=== PATIENT | female | born 1955 | race Caucasian/White ===

== ENCOUNTER → 2016-07-19 | Outpatient (CLI) | payer OTHER | LOC: FIMAGING 10:24 | PROVIDERS: ATTEND Otolaryngology | DX: J32.0 Chronic maxillary sinusitis (principal); J34.2 Deviated nasal septum ==

== ENCOUNTER 2016-08-22 07:14 | Day surgery (SDC) | payer OTHER ==
[2016-08-22] MEDS ORDERED: LR 1,000 ML IV ONE (07:45)
[2016-08-22] MEDS ORDERED: LIDOCAINE 1% 2 ML INJ ID PRN (07:45)
[2016-08-22] MEDS ORDERED: METHYLENE BLUE 0.5% 50 MG/10 ML AMP ONE (07:55)
[2016-08-22] MEDS ORDERED: EPINEPHrine 30 MG/30 ML MDV ONE (07:55)
[2016-08-22] MEDS ORDERED: LIDO/EPI 1% **Not for Epidural 20 ML MDV ONE (07:55)
[2016-08-22] MEDS ORDERED: LIDOCAINE 1% 2 ML INJ ONE (07:56)
[2016-08-22] MEDS ORDERED: MIDAZOLAM 2 MG/2 ML VIAL IVP ONE (08:14)
[2016-08-22] MEDS ORDERED: SCOPOLAMINE HYDROBROMIDE 1.5 MG PATCH TD SCH (08:15)
[2016-08-22] MEDS ORDERED: ceFAZolin 2 GM/DEXTROSE 100 ML IV ONE (08:36)
[2016-08-22] MEDS ORDERED: DEXAMETHASONE 10 MG/ML VIAL IVP ONE (08:36)
[2016-08-22] MEDS ORDERED: ROCURONIUM 50 MG/5 ML VIAL ONE (08:37)
[2016-08-22] MEDS ORDERED: DEXAMETHASONE 4 MG/ML VIAL ONE ×3 (08:37)
[2016-08-22] MEDS ORDERED: LIDOCAINE 2% 5 ML SDV ONE (08:38)
[2016-08-22] MEDS ORDERED: ONDANSETRON 4 MG/2 ML VIAL ONE (08:38)
--- NOTE | 2016-08-22 08:38 | PDHPUP ---
History & Physical Update H&P update statement: This history and physical update is based on an assessment of the patient which was completed after admission or registration (within 24 hours), but prior to the surgery/procedure. H&P update: H&P reviewed & patient examined, no change in patient's condition since H&P completed (plan for B FESS, possible septoplasty)
[2016-08-22] MEDS ORDERED: fentaNYL 100 MCG/2 ML INJ ONE ×2 (08:40→13:14)
[2016-08-22] MEDS ORDERED: PROPOFOL 200 MG/20 ML VIAL ONE (08:40)
--- NOTE | 2016-08-22 09:51 | PDANEPAE ---
ANE History of Present Illness 61 year old with asthma well controlled on advair, uses albuterol as a rescue, and stable hypothyroidism. She took her augmentin this AM, as well as advair and synthroid. She has a history of motion sickness so discussed triple antiemetic therapy. No difficulties with anesthesia in the past. ANE Past Medical History - Cardiovascular History Hx Hypertension: No Hx Arrhythmias: No Hx Chest Pain: No Hx Coronary Artery / Peripheral Vascular Disease: No Hx CHF / Valvular Disease: No Hx Palpitations: No - Pulmonary History Hx COPD: No Hx Asthma/Reactive Airway Disease: Yes Hx Recent Upper Respiratory Infection: No Hx Oxygen in Use at Home: No - Neurologic History Hx Cerebrovascular Accident: No Hx Seizures: No Hx Dementia: No - Endocrine History Hx Diabetes: No Hypothyroid: Yes - Renal History Hx Renal Disorders: No - Liver History Hx Hepatic Disorders: No - Neurological & Psychiatric Hx Hx Neurological and Psychiatric Disorders: Yes - Cancer History Hx Cancer: No - Congenital Disorder History Hx Congenital Disorders: No - GI History Hx Gastrointestinal Disorders: No - Chronic Pain History Chronic Pain: No ANE Review of Systems - Exercise capacity METS (RN): 4 METS ANE Patient History - Allergies Allergies/Adverse Reactions: Sulfa (Sulfonamide Antibiotics) Allergy (Verified 08/05/16 16:56) - Home Medications Home Medications: ALBUTEROL SULFATE 1.25 MG/3 ML 2 puffs DAILY PRN 08/05/16 [Last Taken Unknown] Advair 100/50 (*) 1 puffs DAILY 08/05/16 [Last Taken 08/21/16] Calcium 500-Vit D3 200 Tablet 1 tab DAILY 08/05/16 [Last Taken 08/12/16] Fish Oil 1,200 mg Softgel 1 cap DAILY 08/05/16 [Last Taken 08/12/16] Levothyroxine 1 tab DAILY 08/05/16 [Last Taken 08/21/16 06:25] Multivitamin (*) 1 tab DAILY 08/05/16 [Last Taken 08/12/16] Qnasl 2 spray EACHNARE DAILY 08/05/16 [Last Taken 08/21/16 18:25] Vitamin B12 (*) 0.5 tab DAILY 08/05/16 [Last Taken 08/12/16] Ativan 08/22/16 [Last Taken 08/21/16 18:30] Augmentin 875 MG TAB (*) 08/22/16 [Last Taken 08/22/16 08:25] Prednisone 20 08/22/16 [Last Taken 08/21/16] - NPO status NPO Since - Liquids (Date): 08/21/16 NPO Since - Liquids (Time): 22:00 NPO Since - Solids (Date): 08/21/16 NPO Since - Solids (Time): 20:00 - Smoking Hx Smoking Status: Former smoker ANE Labs/Vital Signs - Vital Signs Blood Pressure: 121/69 Heart Rate: 56 Respiratory Rate: 16 O2 Sat (%): 16 Height: 170.18 cm Weight: 61.235 kg ANE Physical Exam - Airway Mallampati Score: Class 1 Mouth exam: poor dentition - Pulmonary Pulmonary: no respiratory distress - Cardiovascular Cardiovascular: regular rate and rhythym - ASA Status ASA Status: II (multiple chips on teeth, right front tooth with large crack) ANE Anesthesia Plan Anesthesia Plan: general endotracheal anesthesia Urgent/Emergent Case: Denise christiansen completed preop but documented later for safe timely pt care
[2016-08-22] MEDS ORDERED: fentaNYL 100 MCG/2 ML INJ IVP PRN (10:56)
[2016-08-22] MEDS ORDERED: ONDANSETRON 4 MG/2 ML VIAL IVP PRN ×2 (10:56→12:16)
[2016-08-22] MEDS ORDERED: MEPERIDINE 25 MG/ML SYR IVP PRN (10:56)
[2016-08-22] MEDS ORDERED: OXYCODONE/APAP 5/325 TAB PO PRN ×2 (10:56→12:16)
[2016-08-22] MEDS ORDERED: PROMETHAZINE HCL 25 MG/ML INJ IVP PRN (10:56)
[2016-08-22] MEDS ORDERED: NALOXONE HCL 0.4 MG/ML INJ IVP PRN (10:56)
[2016-08-22] MEDS ORDERED: HYDROmorphONE/DILAUDID 1 MG/ML SYR IVP PRN (10:56)
[2016-08-22] MEDS ORDERED: LR 500 ML IV PRN (10:56)
[2016-08-22] MEDS ORDERED: OXYMETAZOLINE 30 ML NASAL SPRAY EACHNARE PRN (12:16)
--- NOTE | 2016-08-22 12:23 | POSTOPPROG ---
Post Op Note Date of Operation: 08/22/16 Surgeon: Nessa Solomon Anesthesia: GET(General Endotracheal) Pre-op Diagnosis: CRSwNP Post-op Diagnosis: CRSwNP Indication: above Procedure: B FESS, SMR turbs, polypectomy Findings: severe polyps/polypoid tissue and mucus throghout Inf/Abcess present in the surg proc area at time of surgery?: No Depth: Superfical (Skin SQ) EBL: 50-100 Total fluids administered: 1 L Complications: none apparent
[2016-08-22 12:29] VITALS: PULSE 92; TEMP 97.5
--- NOTE | 2016-08-22 14:42 | POSTANESTH ---
Post Anesthetic Evaluation Cardiovascular Status: Normal, Stable Respiratory Status: Normal, Stable Level of Consciousness/Mental Status: Can Participate in Eval Pain Control: Adequate, Prn Tx Ordered Nausea/Vomiting Control: Adequate, Prn Tx Ordered Complications Possibly Related to Anesthesia: None Noted
[2016-08-22 15:33] VITALS: BP 111/66; RESP 17; O2SAT 95
[2016-08-23] MEDS ORDERED: PATCH REMOVAL 1 EA PATCH TD ONE (08:13)
--- NOTE | 2016-08-31 09:44 | GOP ---
[f rep st] OPERATIVE REPORT DATE OF OPERATION: 08/22/2016 SURGEON: Nessa Solomon MD PREOPERATIVE DIAGNOSIS: Chronic pansinusitis with nasal polyposis. POSTOPERATIVE DIAGNOSIS: Chronic pansinusitis with nasal polyposis. PROCEDURE PERFORMED: 1. Bilateral endoscopic maxillary antrostomies. 2. Bilateral endoscopic total ethmoidectomies. 3. Bilateral endoscopic sphenoidotomies with tissue removal on the left. 4. Bilateral submucous resection of inferior turbinates. 5. Endoscopically assisted septoplasty. 6. Stereotactic volumetric navigation of the paranasal sinuses and extradural skull base utilizing the [employer]tr[employer] fusion system. FINDINGS: Pt with severe polyps thoughout her nasal cavity and edema throughout. Improved patency postoperatively. INDICATIONS: The patient is a very pleasant, 61-year-old woman who has a history of chronic nasal polyposis and sinusitis for many, many years. She also has asthma. She was pre treated with antibiotics and steroids and then a CT scan was done, which showed chronic pain sinus thickening. She just had a little thickening in the frontal recess bilaterally, but otherwise the frontals were clear, and she had thickening throughout the other sinuses with obstruction of the ostiomeatal complex bilaterally. It was felt she would benefit from the above procedure so she was brought here today. DESCRIPTION OF PROCEDURE: The patient was 1st seen in the preoperative area, where informed consent was obtained. She was then brought back to the operating room, where Anesthesia sedated and intubated her. The bed was turned 90 degrees and she was prepped and draped in the normal fashion. The [employer] fusion head piece was placed and then registered and confirmed to tracking accurately. Once this was confirmed, I then placed epi soaked pledgets within the nares for vasoconstriction. These were removed and then the 0 degree scope was used to visualize the nasal cavity bilaterally. She was noted to have a significantly deviated nasal septum to the left that hurt my access to the left side of the middle meatus and the sinus cavity so it was felt septoplasty would be necessary. So at this point, 2% lidocaine with 1:200,000 epinephrine was injected into the septum bilaterally and once this had sufficient time to act, a left-sided hemitransfixion incision was made and a Eddie elevator was used to elevate the mucoperichondrial flap on this side back to the bony cartilaginous junction. Once the flap was elevated about a cm and a half, the 0 degree scope was used to place through the hemitransfixion incision, and then used to elevate the flap further posteriorly. Once this was done, the bony cartilaginous junction was divided using the caudal instrument inferiorly to superiorly, taking care to keep at least a 10 mm strip dorsally and then the knife was used to make an incision from the superior aspect of the bony cartilaginous junction posteriorly, bringing the incision anteriorly and then inferiorly, and then the mucoperichondrial flap was elevated on the other side. Once this was done, the cartilage that had previously been released was removed from the hemitransfixion incision. At this point, a combination of hand instruments were used to remove any other bone or cartilage that was obstructing until I had good access to the middle meatus. Once this was done, all instruments were removed from the hemitransfixion incision and then a 4-0 plain gut on a Arnulfo needle was used to place quilting sutures through the septum. A 4-0 chromic in an interrupted fashion was then used to close the hemitransfixion incision. At this point, I was able to access both sides, and 0 degree scope was used to visualize both sides. She had significant polyposis bilaterally, worse on the left. The microdebrider was used to clean this area up until I was able to delineate some type of anatomy. I was able to palpate the middle turbinate, even though this was very flimsy and thin, and there was a significant amount of polyps throughout the middle meatus that were removed. Once I was able to identify the lateral nasal wall as well as the middle turbinates, the uncinate was palpated and this was infractured and the microdebrider was used to remove the inferior 2/3 portion of it. A backbiter was then also used to remove more of the uncinate process to confirm this was completely removed. A 70 degree scope was used to try to visualize the natural os. The curved suction that was used as a guide was used to confirm our positioning as well as direct visualization of the natural os. This was entered into and then the posterior fontanelle was posteriorly and medially and then a combination of hand instruments were used to clean this area up and complete maxillary antrostomy. She did have a lot of thick secretions within the sinus but no polyps; these were suctioned out. Once this was done, the maxillary sinus seeker was used to place it in the retrobulbar recess, and then the bulla was fractured forward and then the microdebrider was used to complete the anterior ethmoidectomy, noting our lamina laterally. At this point, I came to the basal lamella. She had a significant amount of polyps up until this area and then using the fusion guided straight suction, the basal lamella was entered in the medial inferior aspect of it and the J curette was used to fracture some the posterior ethmoid cells superiorly and laterally. The microdebrider and hand instruments were used to clean this area up until I was able to visualize the lamina laterally and then the superior turbinate was visualized most medially. There was a significant amount of polyps in the superior meatus and so these were removed until I could visualize these landmarks, and then the inferior 1/3 of the superior turbinates was removed using the microdebrider and all the polypoid mucosa was removed until the face of the sphenoid was able to be accessed. At this point, epi soaked pledget was placed within the sphenoid os to give some vasoconstriction and we turned our attention to the right side. Throughout the procedure, the sides were rotated. Vasoconstriction was helped with epi soaked pledgets placed in the area intermittently. So at this point, we turned our attention to the right side and I did the exact same thing, removing the polyps from the nasal cavity and then middle meatus and then I performed a maxillary antrostomy and a total ethmoidectomy in the same fashion as on the left, taking care to note any landmarks as the anatomy was somewhat distorted secondary to the polyps. Once I came to the face of the sphenoid on the right side, an epi soaked pledget was placed on the right and I turned my attention to the left. This epi soaked pledget had previously been removed and then at this point, vasoconstriction was good and I was able to visualize the natural os of the sphenoid using my fusion guided suction for confirmation and access. Once this was done, the microdebrider was used to clean up the area of the natural os of the sphenoid bone. There was noted to be some polypoid tissue prolapsing back into the sphenoid that was removed. Once this was done, the up and down biting Kerrisons were used to widen the sphenoid laterally, inferiorly and superiorly and on this side I did have to cauterize the posterior septal branch of the sphenopalatine artery just inferior to the sphenoid os. This was done using suction cautery on a low setting. Once the sphenoid was completely open on this side, we turned our attention to the right side and did the exact same thing. Once this was done, the total ethmoidectomy was completed from posterior to anterior in the superior region. A 30 and 45 degree scope were used to visualize the skull base as well as to confirm that we had opened up all these cells. Once we came to the area of the frontal recess, a 70 degree scope was placed. I had good visualization on both sides of the frontal recess without a significant amount of polyps or edema and so it was felt the frontal recess and the frontal sinusotomy would not be performed. So at this point, the nasal cavity was irrigated out copiously with normal saline and then suctioned clear. There was no significant active bleeding and she had good hemostasis. All of our landmarks were intact. At this point, the middle turbinate was bulgerized to the septum on both sides, and then Kathleen splints that had been cut to size were placed on either side of the septum just lateral to the middle turbinates and these were sutured into place to the caudal portion of the septum using a 3-0 Prolene. Once this was done, all instruments were removed. The patient was turned back over to Anesthesia where she was awakened and extubated, and taken to PACU in stable condition. There were no complications. She tolerated the procedure well, and all pledget counts and instrument counts were correct at the end of the procedure. /[id number]/MODL MTDD
== END 2016-08-22 15:32 | disposition home or self-care (01) ==
LOC: FSGY 07:14
PROVIDERS: ATTEND Otolaryngology
PROC: 09TU4ZZ Resection of Right Ethmoid Sinus, Percutaneous Endoscopic Approach (ICD-10-PCS; principal; 2016-08-22 08:45)
PROC: 09QM4ZZ Repair Nasal Septum, Percutaneous Endoscopic Approach (ICD-10-PCS; principal; 2016-08-22 08:45)
PROC: 09TV4ZZ Resection of Left Ethmoid Sinus, Percutaneous Endoscopic Approach (ICD-10-PCS; principal; 2016-08-22 08:45)
PROC: 09TL8ZZ Resection of Nasal Turbinate, Via Natural or Artificial Opening Endoscopic (ICD-10-PCS; principal; 2016-08-22 08:45)
PROC: 09TX4ZZ Resection of Left Sphenoid Sinus, Percutaneous Endoscopic Approach (ICD-10-PCS; principal; 2016-08-22 08:45)
PROC: 09TW4ZZ Resection of Right Sphenoid Sinus, Percutaneous Endoscopic Approach (ICD-10-PCS; principal; 2016-08-22 08:45)
DX: J32.4 Chronic pansinusitis (principal); J34.2 Deviated nasal septum; J33.9 Nasal polyp, unspecified
CPT/HCPCS: J0690; J1100; J2250; J2405; J2704; J3010; Q9968

== ENCOUNTER → 2016-09-26 | Outpatient (CLI) | payer OTHER | LOC: FIMAGING 13:32 | PROVIDERS: ATTEND Family Medicine | DX: Z12.31 Encounter for screening mammogram for malignant neoplasm of breast (principal) | CPT/HCPCS: G0202 ==

== ENCOUNTER → 2017-01-31 | Outpatient (CLI) | payer OTHER | LOC: BMCIMAGING 10:51 | PROVIDERS: ATTEND Family Medicine | DX: Z13.820 Encounter for screening for osteoporosis (principal); M85.89 Other specified disorders of bone density and structure, multiple sites ==

== ENCOUNTER → 2017-11-13 | Outpatient (CLI) | payer OTHER | LOC: FIMAGING 13:20 | PROVIDERS: ATTEND Family Medicine | DX: Z12.31 Encounter for screening mammogram for malignant neoplasm of breast (principal) ==